=== PATIENT | male | born 1990 | race Two or more races ===

== ENCOUNTER 2018-09-08 13:31 | Emergency (ER) | payer BC ==
[2018-09-08] MEDS ORDERED: Ibuprofen TAB* 600 MG PO ONE (14:18)
[2018-09-08 14:57] LABS: Influenza A Molecular NEGATIVE (Negative); Influenza B Molecular NEGATIVE (Negative)
[2018-09-08 15:36] VITALS: BP 106/65
--- NOTE | 2018-09-08 16:07 | ED ---
Throat Pain/Nasal Congestion - HPI Summary HPI Summary: Patient is a 28-year-old otherwise healthy male who presents to the ED with a 5 day history of intermittent sweats, chills, subjective fevers and sore throat. He also endorses a mild cough and congestion as well as body aches. He states his symptoms have improved over the course of the past 2-3 days. They also have been improving with [id number] NyQuil and DayQuil. He states he has a sick contact at home, but neither one of them had been tested for the flu. He also did not receive the flu vaccine this year. He denies any SOB, CP, abdominal pain, nausea, vomiting, diarrhea, constipation. - History of Current Complaint Chief Complaint: EDThroatPain Time Seen by Provider: 09/08/18 14:03 Hx Obtained From: Patient Onset/Duration: Sudden Onset Severity: Moderate Associated Signs And Symptoms: Positive: Negative - Epiglottits Risk Factors Epiglottis Risk Factors: Negative - Allergies/Home Medications Allergies/Adverse Reactions: Allergies Allergy/AdvReac Type Severity Reaction Status Date / Time amoxicillin AdvReac Unknown Verified 09/08/18 13:37 Reaction Details Home Medications: Home Medications NK [No Home Medications Reported] 09/08/18 [History Confirmed 09/08/18] PMH/Surg Hx/FS Hx/Imm Hx Previously Healthy: Yes - Immunization History Hx Pertussis Vaccination: No Immunizations Up to Date: Yes Infectious Disease History: No Infectious Disease History: Denies: Traveled Outside the [place] in Last 30 Days - Social History Occupation: Employed Full-time Lives: With Family Alcohol Use: Weekly Hx Substance Use: Yes Substance Use Type: Reports: Marijuana Hx Tobacco Use: Yes Smoking Status (MU): Former Smoker Review of Systems Positive: Fever, Chills, Fatigue, Skin Diaphoresis Negative: Blurred Vision, Diplopia, Drainage Positive: Sore Throat Negative: Palpitations, Chest Pain Positive: Cough. Negative: Shortness Of Breath Genitourinary: Negative Positive: no symptoms reported, see HPI Negative: Arthralgia, Myalgia Skin: Negative Neurological: Negative All Other Systems Reviewed And Are Negative: Yes Physical Exam Triage Information Reviewed: Yes Vital Signs On Initial Exam: Initial Vitals Temp Pulse Resp BP Pulse Ox 99.4 F 85 15 121/87 98 09/08/18 13:32 09/08/18 13:32 09/08/18 13:32 09/08/18 13:32 09/08/18 13:32 Vital Signs Reviewed: Yes Appearance: Positive: Well-Appearing, Well-Nourished Skin: Positive: Warm, Skin Color Reflects Adequate Perfusion Head/Face: Positive: Normal Head/Face Inspection Eyes: Positive: EOMI, Conjunctiva Clear Neck: Positive: Supple, No Lymphadenopathy Respiratory/Lung Sounds: Positive: Clear to Auscultation, Breath Sounds Present Cardiovascular: Positive: RRR, Pulses are Symmetrical in both Upper and Lower Extremities Musculoskeletal: Positive: Normal Neurological: Positive: Speech Normal Psychiatric: Positive: Normal, Affect/Mood Appropriate Diagnostics - Vital Signs Vital Signs Temp Pulse Resp BP Pulse Ox 09/08/18 13:32 99.4 F 85 15 121/87 98 - Laboratory Lab Results: Lab Results 09/08/18 09/08/18 Range/Units 14:40 14:45 Influenza A (Rapid) Negative (Negative) Influenza B (Rapid) Negative (Negative) Group A Strep Rapid Negative (Negative) Lab Statement: Any lab studies that have been ordered have been reviewed, and results considered in the medical decision making process. EENT Course/Dx - Course Course Of Treatment: During course treatment, the patient is evaluated for throat pain, with subjective fevers, sweats, chills and body aches over the past 5 days. He states his symptoms have been improving. Lungs CTA, RRR, no pharyngeal erythema or exudates bilaterally. No cervical lymphadenopathy. Patient appears well and nondiaphoretic, nontoxic appearing. Strep and flu swab obtained and are both negative. He is encouraged Tylenol and ibuprofen intermittently. He is diagnosed with viral syndrome. - Diagnoses Provider Diagnoses: Viral syndrome Discharge - Sign-Out/Discharge Documenting (check all that apply): Patient Departure Patient Received Moderate/Deep Sedation with Procedure: No - Discharge Plan Condition: Stable Disposition: HOME Patient Education Materials: Viral Syndrome (ED) Forms: *Work Release Referrals: No Primary Care Phys,NOPCP [Primary Care Provider] - Additional Instructions: Cepacol and chloraceptic tabs over the counter for throat pain relief Nyquil of dayquil every 6 hours Ibuprofen 600mg every 6 hours Take these intermittently - Billing Disposition and Condition Condition: STABLE Disposition: Home
== END 2018-09-08 15:35 | disposition home or self-care (01) ==
LOC: ED 13:31
DX: B34.9 Viral infection, unspecified (principal); J02.9 Acute pharyngitis, unspecified
CPT/HCPCS: 87651; 99282; A9270-GY

== ENCOUNTER 2019-02-21 17:58 | Emergency (ER) | payer BC ==
--- NOTE | 2019-02-21 18:03 | UC ---
Lower Extremity/Ankle HPI - HPI Summary HPI Summary: L toe pain and redness x1 day. States he's had fungal toe nails for months and he thinks it is worsening his redness and pain - History of Current Complaint Chief Complaint: UCLowerExtremity Stated Complaint: FOOT COMP Time Seen by Provider: 02/21/19 18:03 Hx Obtained From: Patient Aggravating Factor(s): Other - pressure Alleviating Factor(s): Nothing Able to Bear Weight: Yes - Allergies/Home Medications Allergies/Adverse Reactions: Allergies Allergy/AdvReac Type Severity Reaction Status Date / Time amoxicillin AdvReac Unknown Verified 02/21/19 18:11 Reaction Details Home Medications: Home Medications Naproxen Sodium [Naproxen 220 mg] 2 tab PO ONCE PRN 02/21/19 [History Confirmed 02/21/19] PMH/Surg Hx/FS Hx/Imm Hx - Additional Past Medical History Additional PMH: +binge drinker one day a week: 12 drinks Previously Healthy: Yes - Surgical History Surgical History: Unable to Obtain/Confirm - Family History Known Family History: Positive: Non-Contributory - Social History Alcohol Use: Weekly - once a week drinks approx 8-12 drinks; reports binge drinking. Substance Use Type: Marijuana Smoking Status (MU): Former Smoker Review of Systems All Other Systems Reviewed And Are Negative: Yes Constitutional: Negative: Fever, Chills Skin: Positive: Other - redness L toe Motor: Negative: Decreased ROM, Weakness Musculoskeletal: Positive: Arthralgia - L large toe. Negative: Edema, Myalgia Neurological: Negative: Weakness, Numbness Physical Exam Triage Information Reviewed: Yes Appearance: Well-Appearing Respiratory Exam: Normal Cardiovascular Exam: Normal Musculoskeletal: Positive: Other: - pain at L large toe towards base of nail bed w/ redness/tenderness to the first joint. No pain/swelling/redness at MTP joint. Skin: Positive: Other - toenails on both feet are chipped, yellow and thick Lower Extremity Course/Dx - Course Course Of Treatment: L large toe cellulitis w/ no joint involvement and tenderness. There was thought this could be gout but it is not in the typical part of the toe but have asked him to f/u if antibx not working. He is afebrile and has good vitals. Also has onychomycosis bilat that may have contributed to nail bed becoming infected. Did have b2b sales manager and used topical antifungal but it did not work and never went back. Will do first 2 wks of nail fungal tx w/ the intent of having podiatry following up and continuing the tx. We disc side effects medication and to be mindful of his etoh use. Also asked him to discuss binge drinking w/ his pcp. - Differential Dx/Diagnosis Differential Diagnosis/HQI/PQRI: Contusion, Sprain, Strain, Tendonitis Provider Diagnosis: Cellulitis, Onychomycosis Discharge ED - Sign-Out/Discharge Documenting (check all that apply): Patient Departure All imaging exams completed and their final reports reviewed: No Studies - Discharge Plan Condition: Good Disposition: HOME Prescriptions: Sulfamethox/Trimethoprim DS* [Bactrim DS 800/160 TAB*] 1 tab PO BID 7 Days #14 tab Terbinafine HCl 250 mg PO BID 14 Days #28 tablet Patient Education Materials: Cellulitis (ED) Forms: *Work Release Referrals: No Primary Care Phys,NOPCP [Primary Care Provider] - Additional Instructions: please follow up with your b2b sales manager. - Billing Disposition and Condition Condition: GOOD Disposition: Home - Attestation Statements Provider Attestation: I was available for consult. This patient was seen by the JAVIER. The patient was not presented to, seen by, or examined by me. -Kelly
[2019-02-21 18:11] VITALS: BP 142/65
== END 2019-02-21 18:44 | disposition home or self-care (01) ==
LOC: UCEAST 17:58
DX: B35.1 Tinea unguium (principal); L03.032 Cellulitis of left toe; Z87.891 Personal history of nicotine dependence
CPT/HCPCS: 99212; G0463